=== PATIENT | female | born 1950 | race African-American/Black ===

== ENCOUNTER 2025-06-19 07:26 | Emergency (ER) | payer MEDICARE, MEDICAID ==
[~2025-06-19] VITALS: Ht 157.5 cm; Wt 54.0 kg
[2025-06-19 07:33] VITALS: PULSE 65; RESP 18; O2SAT 100
[2025-06-19] MEDS: ETOMIDATE 2MG/ML 10ML VIAL IV ONE (07:46)
[2025-06-19] MEDS: SUCCINYLCHOLINE CHLORIDE 200MG/10ML IV ONE (07:46)
[2025-06-19] MEDS: SODIUM CHLORIDE 0.9% 1,000 ML IV ONE (07:47)
[2025-06-19 07:51] VITALS: O2SAT 100
[2025-06-19] MEDS: PROPOFOL 10MG/ML 100ML 100 ML IV SCH (07:51)
[2025-06-19 08:22] LABS: BASOPHILS % 0.9 % (0.0-2.0); EOSINOPHILS % 1.2 % (0.0-5.0); HEMATOCRIT. 43.7 % (36.0-48.0); HEMOGLOBIN. 13.5 g/dL (12.0-16.0); LYMPHOCYTES % 48.3 % (20.0-50.0); MEAN PLATELET VOLUME 10.6 fl (7.4-10.4); MONOCYTES % 5.5 % (2.0-8.0); NEUTROPHILS % 44.1 % (40.0-76.0); PLATELET 238 x1000/uL (130-400); RED BLOOD CELL COUNT 5.23 mill/uL (4.2-5.4); RED CELL DISTRIBUTION WIDTH 18.0 % (11.6-14.6)
[2025-06-19 08:44] LABS: CREATININE 0.8 mg/dL (0.6-1.0); ETHANOL BLOOD < 10 mg/dL (<10); UREA NITROGEN BLOOD 15 mg/dL (9-23)
[2025-06-19 08:46] LABS: ASPARTATE AMINOTRANSFERASE 71 IU/L (<34); BILIRUBIN DIRECT 0.1 mg/dL (<=3.0); BILIRUBIN TOTAL 0.5 mg/dL (0.1-1.0); PROTEIN TOTAL 7.0 g/dL (6.0-8.3)
[2025-06-19 08:54] LABS: TROPONIN I HIGH SENSITIVITY 55 ng/L (3.0-34)
[2025-06-19] MEDS ORDERED: MANNITOL 20% (20GM/100ML) BAG 500ML PREMIX IV ONE (09:00)
[2025-06-19] MEDS: NICARDIPINE 40MG/200ML PREMIX 200 ML IV SCH (09:06)
[2025-06-19 09:10] LABS: BG BASE EXCESS -5.1 mmol/L (-2.0-3.0); BG CARBOXYHEMOGLOBIN 2.8 % (0.5-1.5); BG DEOXYHEMOGLOBIN 0.0 % (0.0-5.0); BG FRACTION INSPIRED OXYGEN 100; BG HCO3 ACT 21.7 mmol/L (21.0-28.0); BG METHEMOGLOBIN 0.0 % (0.5-1.5); BG OXYGEN SATURATION 100.0 % (94.0-98.0); BG OXYHEMOGLOBIN 97.2 % (94.0-98.0); BG PCO2 46.9 mmHg (32.0-45.0); BG PEEP (cmH2O) 5.0 cmH2O; BG PH 7.283 (7.350-7.450); BG PO2 480.0 mmHg (83.0-108.0); BG SAMPLE SITE LEFT BRACHIAL; BG TIDAL VOLUME(mL) 400.0 mL; BG TOTAL HEMOGLOBIN 13.5 g/dL (12.0-16.0); BG VENT MODE VENT - AC; BG VENT RATE 18.0 set
[2025-06-19 09:30] VITALS: TEMP 35.6
[2025-06-19] MEDS ORDERED: DEXT 5%/LACTATED RINGERS 1,000 ML IV SCH (09:45)
[2025-06-19] MEDS: MANNITOL 20% 250 ML IV NR (09:51)
[2025-06-19 09:53] VITALS: PULSE 91; RESP 23; O2SAT 100
[2025-06-19] MEDS ORDERED: LEVETIRACETAM 500MG PREMIX 100 ML IV SCH (10:00)
[2025-06-19 10:02] VITALS: BP 153/78; PULSE 91; RESP 22; O2SAT 100
== END 2025-06-19 10:30 | disposition short-term general hospital (02) ==
LOC: EDBD 07:26 → ER 07:43 → CANBEDREQ 10:29 → ER 10:30
DX: S06.5XAA Traumatic subdural hemorrhage with loss of consciousness status unknown, initial encounter (principal); J96.90 Respiratory failure, unspecified, unspecified whether with hypoxia or hypercapnia; Z79.899 Other long term (current) drug therapy; X58.XXXA Exposure to other specified factors, initial encounter; Y93.89 Activity, other specified; Y92.89 Other specified places as the place of occurrence of the external cause; Y99.8 Other external cause status
CPT/HCPCS: 80076; 80048; 80320; 82962; 85025; 84484; 36415; 71045; 70450; 72125; 82805; 82375; 93005; 31500; 96361; 96365; 96375; 99291; 99292; 36600; J2704; J7030; 94002; 94070; 94664; 98960; G0480